=== PATIENT | male | born 2000 | race Caucasian/White ===

== ENCOUNTER 2021-05-06 10:16 | Emergency (ER) | payer BC, SELFPAY ==
[2021-05-06 10:28] VITALS: BP 115/60; PULSE 82; RESP 20; TEMP 37.3; O2SAT 100
--- NOTE | 2021-05-06 10:32 | ED.URI ---
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 Patient states he has a shorter couple day history of sore throat; comments he had Covid and has been double vaccinated. No fever, hoarseness, earache, or rash, rhinorrhea, loss of taste/smell, CP, cough, S OB,; symptoms are mild worse upon eating. He declines repeat PCR Covid testing Related Data Allergies Allergy/AdvReac Type Severity Reaction Status Date / Time azithromycin Allergy Intermediate Nausea and Verified 10/18/14 19:07 Vomiting Review of Systems Review of Systems: Narrative: General/Constitutional: No weight loss,fever Eyes: N0: Redness,discharge Ears/Nose/Throat: No: Epistaxis,ear discharge Respiratory: Denies: Hemoptysis Gastrointestinal: No Vomiting, Bleeding-rectal Skin: No Lumps, eruption Neurologic: No Focal Weakness,Sz Hematologic: Denies: Petechiae/Purpura Psychiatric: No: Suicida ideationl All Other Systems: Reviewed and Negative PMFSH Social History Social History Gender identity (if verbalized by the patient): Male Comments At time of signature, agree with nursing past medical, surgical, social and family history. There is no relevant family history pertinent to the presenting complaint Exam Narrative: Exam Narrative: General Appearance: Well appearing, Well nourished Conjunctiva clear Ears: Auditory canal normal, TM normal Nose: no rhinorrhea, Mucousal erythema Mouth/Throat: MM moist, Uvula midline, Pharyngeal erythema -no exudate Neck: Supple, No adenopathy Respiratory: No respiratory distress, Breath sounds equal, Clear to auscultation Cardiovascular: RRR, No JVD Musculoskeletal: Non tender, Normal strength, Warm, Dry Neurological: A&O x3, , Normal affect Course Vital Signs Vital signs: Vital Signs Temperature 99.1 F 05/06/21 10:28 Pulse Rate 82 05/06/21 10:28 Respiratory Rate 20 05/06/21 10:28 Blood Pressure 115/60 05/06/21 10:28 Pulse Oximetry 100 05/06/21 10:28 Temperature 99.1 F 05/06/21 10:28 Pulse Rate 82 05/06/21 10:28 Respiratory Rate 20 05/06/21 10:28 Blood Pressure 115/60 05/06/21 10:28 Pulse Oximetry 100 05/06/21 10:28 Discharge Plan Discharge Clinical Impression: Upper respiratory infection Qualifiers: URI type: acute laryngopharyngitis Qualified Code(s): J06.0 - Acute laryngopharyngitis Patient Disposition: Home, Self-Care Condition: Stable Instructions: Antibiotic Form, Pharyngitis (ED) Prescriptions: New lidocaine HCl [Lidocaine Viscous] 2 % solution 5 ml MUCOUS MEM QID PRN (Reason: pain) Qty: 100 RF: 0 amoxicillin 875 mg tablet 875 mg PO Q12H Qty: 20 RF: 0 Follow-up/Referrals: Rosalie Tineo MD [Primary Care Provider] - Stand Alone Forms: Work/School Release IP
== END 2021-05-06 10:41 | disposition home or self-care (01) ==
PROVIDERS: Emergency Provider Emergency Medicine; PCP Pediatrics
DX: J06.0 Acute laryngopharyngitis (principal)
CPT/HCPCS: 99213; G0463

== ENCOUNTER 2022-05-13 15:55 | Emergency (ER) | payer BC, SELFPAY ==
[2022-05-13 16:02] VITALS: BP 103/56; PULSE 70; RESP 16; TEMP 36.2; O2SAT 99
--- NOTE | 2022-05-13 16:33 | ED.EAR ---
HPI - Ear Problem General Chief complaint: Ear Stated complaint: Lt Ear Irritation Time Seen by Provider: 05/13/22 16:05 Source: patient Mode of arrival: ambulatory Limitations: no limitations History of Present Illness HPI Narrative: Angel is a 21-year-old male patient presenting to the clinic today with complaints of left ear pain x2 days. He reports that he works at the [employer] and has been swimming at the [facility] as well. He denies any fever or chills. Related Data Allergies Allergy/AdvReac Type Severity Reaction Status Date / Time azithromycin Allergy Intermediate Nausea and Verified 05/13/22 15:57 Vomiting Review of Systems Review of Systems: Pertinent positives per HPI. Patient denies any fever, chills, rash, headache, visual changes, dizziness, cough, runny nose, sore throat, shortness of breath, chest pain, palpitations, nausea, vomiting, diarrhea, constipation, abdominal pain, or any urinary issues. PMFSH Social History Social History Gender identity (if verbalized by the patient): Male Comments At the time of my signature, I reviewed and agree with the nursing past medical, surgical, social, and family history. There is no relevant family history pertinent to the patient complaint. Exam Narrative: General: Well-developed, well nourished, in no apparent distress Head: Normocephalic, atraumatic Eyes: Pupils equally round and reactive to light bilaterally, EOM intact, sclera and conjunctive clear, no discharge, lids normal Ears: Bilateral cerumen impaction, ear lavage performed with instrumentation to the right ear, TMs intact and clear, left ear canal inflamed and red with white exudate, right ear canal mildly inflamed, no drainage, grossly hearing normal. Nose: Nares patent, no discharge, no inflammation, no sinus tenderness. Mouth: Oropharynx without lesions or masses, good dentition, MMM. Neck: Supple, trachea midline, no enlargement of anterior or posterior cervical nodes, no thyroid masses or goiter palpable. Cardio: Regular rate and rhythm, s1 and s2 normal, no murmur appreciated. Resp: Clear to auscultation bilaterally anteriorly and posteriorly, no rhonchi, rales, wheezing or rubs Course Course Emergency Course: Portions of this record may have been created with voice recognition software. Level of Care: Express Care Visit Vital Signs Vital signs: Vital Signs Temperature 36.2 C L 05/13/22 16:02 Pulse Rate 70 05/13/22 16:02 Respiratory Rate 16 05/13/22 16:02 Blood Pressure 103/56 L 05/13/22 16:02 Pulse Oximetry 99 05/13/22 16:02 Oxygen Delivery Room Air 05/13/22 16:02 Temperature 36.2 C L 05/13/22 16:02 Pulse Rate 70 05/13/22 16:02 Respiratory Rate 16 05/13/22 16:02 Blood Pressure 103/56 L 05/13/22 16:02 Pulse Oximetry 99 05/13/22 16:02 Oxygen Delivery Room Air 05/13/22 16:02 Vital signs reviewed Procedures Ear Wax Removal Both Ears: Ear Wax Removal Date: 05/13/22 Results: Re-examined: cerumen removed completely TM Examination: TM(s) intact, normal appearance Ear Canal Exam: other (Left ear canal red and swollen with white exudate, right ear canal mildly red) Patient Tolerated Procedure: well Complications: no problems Technique: ear canal irrigated (Bilaterally) and ear canal curetted (Right ear canal) Additional Comments: Verbal consent obtained for bilateral irrigation for cerumen impaction. Risk and benefits explained and patient voiced understanding. Bilateral ear canals irrigated with half peroxide half warm water and instrumentation was used on the right ear canal to remove remaining impacted cerumen after irrigation. Patient tolerated procedure fairly well. Medical Decision Making MDM Narrative Medical decision making narrative: At the time of visit patient is resting comfortably on the exam table. He has bilateral cerumen
== END 2022-05-13 16:42 | disposition home or self-care (01) ==
PROVIDERS: Emergency Provider Nurse Practitioner Family; PCP Family Medicine
DX: H60.92 Unspecified otitis externa, left ear (principal); H61.23 Impacted cerumen, bilateral
CPT/HCPCS: 69210; 69209; 99213; G0463